=== PATIENT | female | born 1990 | race American Indian/Alaskan Native ===

== ENCOUNTER 2016-08-22 10:47 | Emergency (ER) | payer SELFPAY ==
--- NOTE | 2016-08-22 11:32 | Emergency Department Report ---
Entered by GALINA MAY, acting as scribe for LARRY JUDGE NP. Chief Complaint: Nausea/Vomiting/Diarrhea Stated Complaint: DEHYDRATION/NO FOODS DOWN X3 DAYS - HPI History of Present Illness: 25 y/o female, non toxic, NAD, well developed, c/o nausea vomiting for 4 days. Associated, chills with vomiting but denies fever, diarrhea, CP, SOB, blurry vision, abd pain, SAENZ - Exam Vital Signs: Vital Signs 08/22/16 11:01 Temperature 98.2 F Pulse Rate 123 H Respiratory 18 Rate Blood Pressure 136/89 O2 Sat by Pulse 100 Oximetry Physical Exam: GENERAL: The patient is a well-developed, well-nourished male in no apparent distress. Patient is alert and oriented x3. ABDOMEN: Soft, nontender, and nondistended. Positive bowel sounds. No hepatosplenomegaly was noted. No guarding or rebound tenderness, negative epigastric bruit. Negative psoas sign, negative white sign, negative McBurneys sign MSE screening note: Focused history and physical exam performed. Due to findings the following was ordered: CBC, UA, CMP, Serum ED Disposition for MSE Condition: Stable This documentation as recorded by the scribe,GALINA MAY,accurately reflects the service I personally performed and the decisions made by ,LARRY JUDGE, NUNU.
[2016-08-22 11:47] LABS: Basophils % (Auto) 0.6 % (0.0-1.8); Eosinophils % (Auto) 0.1 % (0.0-4.3); Hemoglobin 16.7 gm/dl (10.1-14.3); Mean Corpuscular HGB Conc 33 % (30-34); Mean Corpuscular Hemoglobin 29 pg (28-32); Mean Corpuscular Volume 88 fl (79-97); Platelet Count 340 K/mm3 (140-440); Red Blood Count 5.68 M/mm3 (3.65-5.03); Red Cell Distribution Width 13.8 % (13.2-15.2); White Blood Count 15.6 K/mm3 (4.5-11.0)
[2016-08-22 12:14] LABS: Albumin 5.2 g/dL (3.9-5); Albumin/Globulin Ratio 1.2 %; Bilirubin,Total 0.6 mg/dL (0.1-1.2); Calcium 10.1 mg/dL (8.4-10.2); Potassium 3.4 mmol/L (3.6-5.0); Total Protein 9.4 g/dL (6.3-8.2)
[2016-08-22 14:23] LABS: Amylase 50 units/L (27-131); Lipase 25 units/L (13-60)
--- NOTE | 2016-08-22 14:51 | Emergency Department Report ---
HPI - General Chief Complaint: Nausea/Vomiting/Diarrhea Time Seen by Provider: 08/22/16 14:16 - HPI HPI: This is a 25-year-old Afro-[place] female presents to the emergency department with a complaint of a three-day history of nausea, vomiting and dehydration. Patient says she is unsure whether she ate any undercooked meat or spoiled products but said she had a sloppy Filippo's at night and it has been going on since. Her fianc also had a sloppy Filippo but just had "bubble guts" without any nausea or vomiting. She denies any significant abdominal pain, fever, dysuria, back pain. She has not taken anything for symptoms prior to presentation. She denies any past medical history. No recent travel. She does not have a primary care doctor. ED Past Medical Hx - Past Medical History Previous Medical History?: No - Surgical History Past Surgical History?: No - Social History Smoking Status: Never Smoker Substance Use Type: Alcohol - Medications Home Medications: Home Medications Medication Instructions Recorded Confirmed Last Taken Type Nitrofurantoin [place]/M-Cryst 100 mg PO Q12HR #14 capsule 08/22/16 Unknown Rx [Macrobid CAP] Ondansetron [Zofran Odt] 4 mg PO Q8H PRN #10 tab.rapdis 08/22/16 Unknown Rx ED Review of Systems ROS: Stated complaint: DEHYDRATION/NO FOODS DOWN X3 DAYS Other details as noted in HPI Comment: All other systems reviewed and negative Constitutional: denies: chills, fever Eyes: denies: eye pain, eye discharge, vision change ENT: denies: ear pain, throat pain Respiratory: denies: cough, shortness of breath, wheezing Cardiovascular: denies: chest pain, palpitations Gastrointestinal: nausea, vomiting Genitourinary: denies: urgency, dysuria, discharge Musculoskeletal: denies: back pain, joint swelling, arthralgia Skin: denies: rash, lesions Neurological: denies: headache, weakness, paresthesias Physical Exam - Physical Exam Vital Signs: Vital Signs 08/22/16 11:01 Temperature 98.2 F Pulse Rate 123 H Respiratory 18 Rate Blood Pressure 136/89 O2 Sat by Pulse 100 Oximetry Physical Exam: GENERAL: The patient is well-developed well-nourished. HEENT: Normocephalic. Atraumatic. Extraocular motions are intact. Patient has moist mucous membranes. Pupils equal reactive to light bilaterally. NECK: Supple. Trachea is midline. CHEST/LUNGS: Clear to auscultation. There is no respiratory distress noted. HEART/CARDIOVASCULAR: Regular. There is mild tachycardia. There is no gallop rub or murmur. ABDOMEN: Abdomen is soft, nontender. Patient has hyperactive bowel sounds. There is no abdominal distention. SKIN: Skin is warm and dry. NEURO: The patient is awake, alert, and oriented. The patient is cooperative. The patient has no focal neurologic deficits. The patient has normal speech. MUSCULOSKELETAL: There is no tenderness or deformity. There is no limitation range of motion. There is no evidence of acute injury. ED Course Vital Signs 08/22/16 11:01 Temperature 98.2 F Pulse Rate 123 H Respiratory 18 Rate Blood Pressure 136/89 O2 Sat by Pulse 100 Oximetry ED Medical Decision Making - Lab Data Result diagrams: 08/22/16 11:30 08/22/16 11:30 - Medical Decision Making 25-year-old female presents with a three-day history of nausea, vomiting and probable dehydration. Vital signs are stable including being afebrile. Labs are mostly unremarkable other than some signs of dehydration with a BUN and creatinine ratio of greater than 30 showing some prerenal azotemia. She is starting to have some mild renal insufficiency secondary to her dehydration with a creatinine 1.2, which is normal, but a GFR of 55. Patient was given IV resuscitation with 2 L of IV fluid and 2 different doses of Zofran throughout her ED course. Since she was not having any significant abdominal pain and she did not require any imaging. Urinalysis does show a UTI and the patient is not . She was given a dose of Rocephin through her IV. Patient has been reevaluated multiple times over multiple hours and is feeling improved. The tachycardia had resolved. She'll be discharged home with referral for primary care, [place] for nausea and Macrobid for a UTI. She will return to ER with any worsening of her symptoms or any acute distress. - Differential Diagnosis food poisoning, viral syndrome, colitis, bowel obstruction Critical Care Time: No Critical care attestation.: If time is entered above; I have spent that time in minutes in the direct care of this critically ill patient, excluding procedure time. ED Disposition Clinical Impression: Dehydration, Mild renal insufficiency Nausea and vomiting Qualifiers: Vomiting type: unspecified Vomiting Intractability: non-intractable Qualified Code(s): R11.2 - Nausea with vomiting, unspecified UTI (urinary tract infection) Qualifiers: Urinary tract infection type: acute cystitis Hematuria presence: without hematuria Qualified Code(s): N30.00 - Acute cystitis without hematuria Disposition: DISCHARGED TO HOME OR SELFCARE Is pt being admited?: No Condition: Stable Instructions: Acute Nausea and Vomiting (ED), Dehydration (ED), Urinary Tract Infection in Women (ED), Impaired Kidney Function (ED) Additional Instructions: Please increase your oral rehydration. Return to the emergency department with any intractable vomiting, worsening of her symptoms or any acute distress. Please follow-up with a primary care doctor in the next few days without fail. Prescriptions: Nitrofurantoin [place]/M-Cryst [Macrobid CAP] 100 mg PO Q12HR #14 capsule Ondansetron [Zofran Odt] 4 mg PO Q8H PRN #10 tab.rapdis PRN Reason: Nausea Referrals: PRIMARY CARE, [Primary Care Provider] - 3-5 Days OSITO ORELLANA MD [Staff Physician] - 3-5 Days DIANA MASON MD [Staff Physician] - 3-5 Days [facility] [Outside] - 3-5 Days Time of Disposition: 18:53
[2016-08-22] MEDS ORDERED: ZOFRAN IV ONE ×2 (15:28→18:23)
[2016-08-22] MEDS ORDERED: NACL 0.9% 1000 ML 1,000 ML IV ONE (15:28)
[2016-08-22 17:36] LABS: Bacteria,Urine 1+ /HPF (Negative); Bilirubin,Urine SM (Negative); Blood,Urine SM (Negative); Granular Casts,Urine 14 /LPF; Ketones,Urine 20 mg/dL (Negative); Leukocyte Esterase,Urine TR (Negative); Mucus,Urine 3+ /HPF; Nitrite,Urine NEG (Negative); Protein,Urine >500 mg/dL (Negative)
[2016-08-22] MEDS ORDERED: ROCEPHIN/NS 1 GM/50 ML 1 GM/50 ML BAG IV ONE (17:48)
[2016-08-22 17:57] VITALS: BP 140/89
== END 2016-08-22 19:04 | disposition home or self-care (01) ==
LOC: ED 10:47
DX: N30.00 Acute cystitis without hematuria (principal); E86.0 Dehydration; N28.9 Disorder of kidney and ureter, unspecified; R11.2 Nausea with vomiting, unspecified
CPT/HCPCS: 36415; 80053; 81001; 82150; 83690; 84703; 85025; 96361; 96365; 96375; 96376; 99283; J0696; J2405; J7030

== ENCOUNTER 2016-11-10 17:55 | Emergency (ER) | payer SELFPAY ==
[2016-11-10 18:12] VITALS: BP 153/109
[2016-11-10] MEDS ORDERED: ZOFRAN ODT PO ONE (18:19)
[2016-11-10 18:38] LABS: Basophils % (Auto) 0.4 % (0.0-1.8); Eosinophils % (Auto) 0.2 % (0.0-4.3); Hematocrit 44.6 % (30.3-42.9); Hemoglobin 15.1 gm/dl (10.1-14.3); Mean Corpuscular HGB Conc 34 % (30-34); Mean Corpuscular Hemoglobin 30 pg (28-32); Mean Corpuscular Volume 89 fl (79-97); Platelet Count 307 K/mm3 (140-440); Red Blood Count 5.04 M/mm3 (3.65-5.03); Red Cell Distribution Width 13.6 % (13.2-15.2); White Blood Count 16.6 K/mm3 (4.5-11.0)
[2016-11-10 18:53] LABS: Alanine Aminotransferase 15 units/L (7-56); Albumin/Globulin Ratio 1.2 %; Alkaline Phosphatase 99 units/L (35-129); Anion Gap 25 mmol/L; BUN/Creatinine Ratio 18.33; Blood Urea Nitrogen 11 mg/dL (7-17); Carbon Dioxide 20 mmol/L (22-30); Chloride 98.1 mmol/L (98-107); Glucose 125 mg/dL (65-100); Lipase 21 units/L (13-60); Potassium 4.1 mmol/L (3.6-5.0); Sodium 139 mmol/L (137-145); Total Protein 9.3 g/dL (6.3-8.2)
== END 2016-11-10 20:34 | disposition left against medical advice (07) ==
LOC: ED 17:55
DX: R10.9 Unspecified abdominal pain (principal); K92.0 Hematemesis; Z53.21 Procedure and treatment not carried out due to patient leaving prior to being seen by health care provider
CPT/HCPCS: 36415; 80053; 83690; 84702; 85025; Q0162

== ENCOUNTER 2017-04-09 14:25 | Emergency (ER) | payer SELFPAY ==
[2017-04-09 15:22] LABS: Basophils # (Auto) 0.1 K/mm3 (0.0-0.1); Basophils % (Auto) 0.5 % (0.0-1.8); Eosinophils % (Auto) 0.2 % (0.0-4.3); Hematocrit 49.3 % (30.3-42.9); Hemoglobin 16.2 gm/dl (10.1-14.3); Lymphocytes # (Auto) 2.7 K/mm3 (1.2-5.4); Lymphocytes % (Auto) 19.9 % (13.4-35.0); Mean Corpuscular HGB Conc 33 % (30-34); Mean Corpuscular Hemoglobin 29 pg (28-32); Mean Corpuscular Volume 88 fl (79-97); Monocytes # (Auto) 0.7 K/mm3 (0.0-0.8); Red Cell Distribution Width 13.9 % (13.2-15.2)
[2017-04-09 15:34] LABS: Platelet Count 287 K/mm3 (140-440)
[2017-04-09 16:25] LABS: Bilirubin,Urine NEG (Negative); Blood,Urine NEG (Negative); Color,Urine Amber (Yellow); Mucus,Urine 3+ /HPF; Nitrite,Urine NEG (Negative)
[2017-04-09 16:27] LABS: Protein,Urine >500 mg/dL (Negative)
[2017-04-09 16:30] LABS: Alanine Aminotransferase 17 units/L (7-56); Albumin 5.1 g/dL (3.9-5); BUN/Creatinine Ratio 27; Blood Urea Nitrogen 19 mg/dL (7-17); Calcium 9.8 mg/dL (8.4-10.2); Hemolysis Index 10
[2017-04-10 03:37] LABS: HCG Qualitative,Urine Negative (Negative)
[2017-04-10] MEDS ORDERED: PEPCID IV ONE (04:32)
[2017-04-10] MEDS ORDERED: DILAUDID IV ONE (04:32)
[2017-04-10] MEDS ORDERED: CARAFATE PO ONE (04:32)
[2017-04-10] MEDS ORDERED: ZOFRAN IV ONE (04:32)
[2017-04-10] MEDS ORDERED: BENTYL PO ONE (04:32)
[2017-04-10] MEDS ORDERED: NACL 0.9% 500 ML 500 ML IV ONE (04:33)
[2017-04-10] MEDS ORDERED: TYLENOL PO ONE (04:33)
--- NOTE | 2017-04-10 04:33 | Emergency Department Report ---
ED General Adult HPI - General Chief complaint: Abdominal Pain Stated complaint: DEHYDRATION, NAUSEA, FAINT, ABD PAIN Time Seen by Provider: 04/10/17 04:14 Source: patient, RN notes reviewed, old records reviewed Mode of arrival: Ambulatory Limitations: No Limitations - History of Present Illness Initial comments: This is a 26-year-old female who was previously unknown to this provider. Patient presents to the ER today with a complaint of abdominal pain, nausea, vomiting. She reports a few episodes of initial nonbloody, nonbilious emesis, initially thereafter indicates that she's had a few episodes of blood-tinged emesis. She denies headache, neck pain, chest pain. She denies irritative and obstructive urinary symptoms. She also describes coffee colored stool, but denies ann marie melena. She does endorse that her symptoms improve when she takes a hot shower, and she admits to consuming marijuana for 5 times a month. She denies other hard drugs. She has abdominal pain that is achy, cramping, sharp, increases with palpation, decreases with rest. -: Gradual, days(s) Location: abdomen Radiation: non-radiation Severity scale (0 -10): 8 Quality: aching Consistency: constant Improves with: rest Worsens with: eating Associated Symptoms: malaise, nausea/vomiting, weakness. denies: confusion, chest pain, cough, diaphoresis, loss of appetite - Related Data Previous Rx's Medication Instructions Recorded Last Taken Type Nitrofurantoin Bailey/M-Cryst 100 mg PO Q12HR #14 capsule 08/22/16 Unknown Rx [Macrobid CAP] Ondansetron [Zofran Odt] 4 mg PO Q8H PRN #10 tab.rapdis 08/22/16 Unknown Rx Dicyclomine [Bentyl] 10 mg PO QID PRN #20 capsule 04/10/17 Unknown Rx Famotidine [Pepcid] 20 mg PO QDAY #30 tablet 04/10/17 Unknown Rx Ondansetron [Zofran Odt] 4 mg PO Q8HR PRN #20 tab.rapdis 04/10/17 Unknown Rx Allergies Allergy/AdvReac Type Severity Reaction Status Date / Time No Known Allergies Allergy Verified 11/10/16 18:13 ED Review of Systems ROS: Stated complaint: DEHYDRATION, NAUSEA, FAINT, ABD PAIN Other details as noted in HPI ED Past Medical Hx - Past Medical History Hx Asthma: Yes - Surgical History Past Surgical History?: No - Social History Smoking Status: Never Smoker Substance Use Type: None - Medications Home Medications: Home Medications Medication Instructions Recorded Confirmed Last Taken Type Nitrofurantoin Bailey/M-Cryst 100 mg PO Q12HR #14 capsule 08/22/16 Unknown Rx [Macrobid CAP] Ondansetron [Zofran Odt] 4 mg PO Q8H PRN #10 tab.rapdis 08/22/16 Unknown Rx Dicyclomine [Bentyl] 10 mg PO QID PRN #20 capsule 04/10/17 Unknown Rx Famotidine [Pepcid] 20 mg PO QDAY #30 tablet 04/10/17 Unknown Rx Ondansetron [Zofran Odt] 4 mg PO Q8HR PRN #20 tab.rapdis 04/10/17 Unknown Rx ED Physical Exam - General Limitations: No Limitations General appearance: alert, in no apparent distress - Head Head exam: Present: atraumatic, normocephalic - Eye Eye exam: Present: normal appearance, EOMI. Absent: nystagmus - ENT ENT exam: Present: normal exam, normal orophraynx, mucous membranes moist, normal external ear exam - Neck Neck exam: Present: normal inspection, full ROM - Respiratory Respiratory exam: Present: normal lung sounds bilaterally. Absent: respiratory distress - Cardiovascular Cardiovascular Exam: Present: normal rhythm, tachycardia, normal heart sounds. Absent: systolic murmur, diastolic murmur, rubs, gallop - GI/Abdominal GI/Abdominal exam: Present: soft, tenderness, normal bowel sounds, other (right flank, right upper quadrant tenderness, no rebound, guarding or peritoneal signs ). Absent: distended, guarding, rebound, rigid, pulsatile mass - Rectal Rectal exam: Present: normal inspection, normal rectal tone, heme (-) stool, other (escorted by nurse ALCE HEDRICK). Absent: decreased rectal tone, heme (+ ) stool, black stool, bloody stool, fecal impaction, hemorrhoids - External exam: Present: normal external exam Speculum exam: Present: normal speculum exam, other (escorted by nursing ALEC HEDRICK) Bi-manual exam: Present: normal bi-manual exam. Absent: cervical motion tendernes, adnexal tenderness, adnexal mass - Extremities Exam Extremities exam: Present: normal inspection, full ROM, normal capillary refill. Absent: pedal edema, joint swelling, calf tenderness - Back Exam Back exam: Present: normal inspection, full ROM. Absent: tenderness, CVA tenderness (R), paraspinal tenderness, vertebral tenderness - Neurological Exam Neurological exam: Present: alert, oriented X3, CN II-XII intact, normal gait, other (Extraocular movements intact. Tongue midline. No facial droop. Facial sensation intact to light touch in the V1, V2, V3 distribution bilaterally. 5 and 5 strength in 4 extremities.. Sensation is intact to light touch in 4 extremities.). Absent: motor sensory deficit - Psychiatric Psychiatric exam: Present: normal affect, normal mood - Skin Skin exam: Present: warm, dry, intact, normal color. Absent: rash ED Course Vital Signs 04/09/17 04/10/17 04/10/17 14:57 00:15 03:33 Temperature 99.0 F 97.7 F Pulse Rate 106 H 106 H 81 Respiratory 18 18 18 Rate Blood Pressure 154/106 150/108 Blood Pressure [Left] O2 Sat by Pulse 100 100 Oximetry 04/10/17 04/10/17 04/10/17 03:45 04:00 04:04 Temperature 99.3 F Pulse Rate 101 H 94 H 105 H Respiratory 18 18 16 Rate Blood Pressure 136/86 152/96 Blood Pressure 136/86 [Left] O2 Sat by Pulse 97 99 99 Oximetry 04/10/17 04/10/17 04/10/17 04:05 04:15 04:31 Temperature Pulse Rate 78 105 H Respiratory 16 25 H 17 Rate Blood Pressure 152/96 152/96 Blood Pressure [Left] O2 Sat by Pulse 99 95 Oximetry 04/10/17 04/10/17 04/10/17 04:45 05:44 05:45 Temperature Pulse Rate 96 H Respiratory 20 18 Rate Blood Pressure 152/96 152/96 Blood Pressure [Left] O2 Sat by Pulse 93 Oximetry 04/10/17 04/10/17 04/10/17 06:00 06:06 06:15 Temperature Pulse Rate 87 70 Respiratory 23 18 20 Rate Blood Pressure 135/81 135/81 Blood Pressure [Left] O2 Sat by Pulse 97 95 Oximetry 04/10/17 04/10/17 06:31 06:45 Temperature Pulse Rate 74 84 Respiratory 17 21 Rate Blood Pressure 135/81 135/81 Blood Pressure [Left] O2 Sat by Pulse 97 96 Oximetry - Reevaluation(s) Reevaluation #1: 04/10/17 05:58 Patient is clinically sober at this time, does not require 1013, walks with a steady gait, therefore there is no utility in performing a urine drug screen on her. It will not change how i manage the patient. Reevaluation #2: 04/10/17 06:01 patient still waiting to take oral meds. care transferred to Dr Clarke; if patient can drink she can go home if she cannot tolerate orals, then would admit for intractable nausea and vomiting ED Medical Decision Making - Lab Data Result diagrams: 04/09/17 15:06 04/09/17 15:06 Vital Signs 04/09/17 04/10/17 04/10/17 14:57 00:15 04:04 Temperature 99.0 F 97.7 F 99.3 F Pulse Rate 106 H 106 H 105 H Respiratory 18 18 16 Rate Blood Pressure 154/106 150/108 Blood Pressure 136/86 [Left] O2 Sat by Pulse 100 100 99 Oximetry 04/10/17 04:05 Temperature Pulse Rate Respiratory 16 Rate Blood Pressure Blood Pressure [Left] O2 Sat by Pulse 99 Oximetry Lab Results 04/09/17 04/09/17 04/09/17 Range/Units 15:06 15:06 15:30 WBC 13.6 H (4.5-11.0) K/mm3 RBC 5.60 H (3.65-5.03) M/mm3 Hgb 16.2 H (10.1-14.3) gm/dl Hct 49.3 H (30.3-42.9) % MCV 88 (79-97) fl MCH 29 (28-32) pg MCHC 33 (30-34) % RDW 13.9 (13.2-15.2) % Plt Count 287 (140-440) K/mm3 Lymph % (Auto) 19.9 (13.4-35.0) % Bailey % (Auto) 5.0 (0.0-7.3) % Eos % (Auto) 0.2 (0.0-4.3) % Baso % (Auto) 0.5 (0.0-1.8) % Lymph # 2.7 (1.2-5.4) K/mm3 Bailey # 0.7 (0.0-0.8) K/mm3 Eos # 0.0 (0.0-0.4) K/mm3 Baso # 0.1 (0.0-0.1) K/mm3 Seg Neutrophils % 74.4 H (40.0-70.0) % Seg Neutrophils # 10.1 H (1.8-7.7) K/mm3 Sodium 137 (137-145) mmol/L Potassium 3.4 L (3.6-5.0) mmol/L Chloride 93.1 L (98-107) mmol/L Carbon Dioxide 26 (22-30) mmol/L Anion Gap 21 mmol/L BUN 19 H (7-17) mg/dL Creatinine 0.7 (0.7-1.2) mg/dL Estimated GFR > 60 ml/min BUN/Creatinine Ratio 27 % Glucose 102 H (65-100) mg/dL Calcium 9.8 (8.4-10.2) mg/dL Total Bilirubin 0.50 (0.1-1.2) mg/dL AST 22 (5-40) units/L ALT 17 (7-56) units/L Alkaline Phosphatase 86 (35-129) units/L Total Protein 9.1 H (6.3-8.2) g/dL Albumin 5.1 H (3.9-5) g/dL Albumin/Globulin Ratio 1.3 % Urine Color Sue (Yellow) Urine Turbidity Clear (Clear) Urine pH 5.0 (5.0-7.0) Ur Specific Downey 1.034 H (1.003-1.030) Urine Protein >500 (Negative) mg/dL Urine Glucose (UA) Neg (Negative) mg/dL Urine Ketones 20 (Negative) mg/dL Urine Blood Neg (Negative) Urine Nitrite Neg (Negative) Urine Bilirubin Neg (Negative) Urine Urobilinogen 2.0 (<2.0) mg/dL Ur Leukocyte Esterase Tr (Negative) Urine WBC (Auto) 6.0 (0.0-6.0) /HPF Urine RBC (Auto) 4.0 (0.0-6.0) /HPF U Epithel Cells (Auto) 6.0 (0-13.0) /HPF Urine Mucus 3+ /HPF Urine HCG, Qual (Negative) 04/10/17 Range/Units 03:18 WBC (4.5-11.0) K/mm3 RBC (3.65-5.03) M/mm3 Hgb (10.1-14.3) gm/dl Hct (30.3-42.9) % MCV (79-97) fl MCH (28-32) pg MCHC (30-34) % RDW (13.2-15.2) % Plt Count (140-440) K/mm3 Lymph % (Auto) (13.4-35.0) % Bailey % (Auto) (0.0-7.3) % Eos % (Auto) (0.0-4.3) % Baso % (Auto) (0.0-1.8) % Lymph # (1.2-5.4) K/mm3 Bailey # (0.0-0.8) K/mm3 Eos # (0.0-0.4) K/mm3 Baso # (0.0-0.1) K/mm3 Seg Neutrophils % (40.0-70.0) % Seg Neutrophils # (1.8-7.7) K/mm3 Sodium (137-145) mmol/L Potassium (3.6-5.0) mmol/L Chloride (98-107) mmol/L Carbon Dioxide (22-30) mmol/L Anion Gap mmol/L BUN (7-17) mg/dL Creatinine (0.7-1.2) mg/dL Estimated GFR ml/min BUN/Creatinine Ratio % Glucose (65-100) mg/dL Calcium (8.4-10.2) mg/dL Total Bilirubin (0.1-1.2) mg/dL AST (5-40) units/L ALT (7-56) units/L Alkaline Phosphatase (35-129) units/L Total Protein (6.3-8.2) g/dL Albumin (3.9-5) g/dL Albumin/Globulin Ratio % Urine Color (Yellow) Urine Turbidity (Clear) Urine pH (5.0-7.0) Ur Specific Downey (1.003-1.030) Urine Protein (Negative) mg/dL Urine Glucose (UA) (Negative) mg/dL Urine Ketones (Negative) mg/dL Urine Blood (Negative) Urine Nitrite (Negative) Urine Bilirubin (Negative) Urine Urobilinogen (<2.0) mg/dL Ur Leukocyte Esterase (Negative) Urine WBC (Auto) (0.0-6.0) /HPF Urine RBC (Auto) (0.0-6.0) /HPF U Epithel Cells (Auto) (0-13.0) /HPF Urine Mucus /HPF Urine HCG, Qual Negative (Negative) - Radiology Data Radiology results: report reviewed, image reviewed CT scan of the abdomen and pelvis with IV contrast: No acute disease - Medical Decision Making Differential diagnosis, including not limited to: GERD, gastritis, pancreatitis , appendicitis, colitis, cyclic vomiting syndrome, narcotic bowel syndrome, cannabinoid hyperemesis syndrome, [place] tear Assessment and plan: 26-year-old female with complaint of abdominal pain, nausea or vomiting, has not had any bleeding that I can detect, rectal exam is negative, has had a few episodes of vomiting, CT scan abdomen and pelvis is normal, gynecologic exam is normal, patient medicated, currently waiting by mouth challenge. Critical care attestation.: If time is entered above; I have spent that time in minutes in the direct care of this critically ill patient, excluding procedure time. ED Disposition Clinical Impression: Abdominal pain, Nausea & vomiting Disposition: DC-01 TO HOME OR SELFCARE Is pt being admited?: No Does the pt Need Aspirin: No Condition: Stable Instructions: Abdominal Pain (ED) Additional Instructions: Take the pain medication, nausea medication as directed. Avoid consumption of alcohol, Motrin, ibuprofen, Naprosyn. Follow up with the primary care doctor or mechanical manager within the next 7-10 days. Return to the ER right away with new pain, worsening pain, migration of pain, fevers, chills, lethargy, irritability, projectile vomiting, change in mental status, confusion, inability to tolerate liquid feeds. Prescriptions: Dicyclomine [Bentyl] 10 mg PO QID PRN #20 capsule PRN Reason: Pain Famotidine [Pepcid] 20 mg PO QDAY #30 tablet Ondansetron [Zofran Odt] 4 mg PO Q8HR PRN #20 tab.rapdis PRN Reason: Nausea Referrals: OLY VARGAS MD [Primary Care Provider] - 3-5 Days [facility] [Provider Group] - 3-5 Days ROYAL RICHARDSON MD [Staff Physician] - 3-5 Days Forms: Work/School Release Form(ED)
[2017-04-10] MEDS ORDERED: NACL 0.9% 1000 ML 1,000 ML IV ONE (04:34)
[2017-04-10] MEDS ORDERED: DILAUDID ONE (05:38)
--- NOTE | 2017-04-10 05:38 | Cat Scan Report ---
FINAL REPORT EXAM: CT ABDOMEN PELVIS W CON HISTORY: abd pain n/v TECHNIQUE: CT images are acquired through the Abdomen and Pelvis arterial and delayed phases following intravenous administration of contrast. Transaxial, coronal and sagittal reformations are provided. PRIORS: None FINDINGS: Partially visualized intrathoracic contents are unremarkable. The liver, gallbladder, pancreas, spleen, and adrenal glands are unremarkable. Kidneys show no worrisome lesions, hydronephrosis, or calculi. Urinary bladder is unremarkable. Small hiatal hernia. 5 small and large bowel are normal in caliber. Sigmoid diverticulosis without surrounding inflammatory findings. Appendix is normal. No free air, free fluid, or lymphadenopathy identified. Aorta is normal in course and caliber. Anteverted uterus. An IUD is present. Functional cysts in both ovaries measure up to about 2.5 cm in greatest dimension. No significant free fluid in the pelvis. Superficial soft tissues are unremarkable. No acute or aggressive appearing skeletal findings. IMPRESSION: No acute findings in the abdomen or pelvis. Small hiatal hernia. Small functional cysts in both ovaries. If there is concern for gynecologic etiology of patient's symptoms, consider follow-up pelvic ultrasound.
[2017-04-10 07:00] VITALS: BP 135/81
== END 2017-04-10 07:06 | disposition home or self-care (01) ==
LOC: ED 14:25
DX: R10.9 Unspecified abdominal pain (principal); R11.2 Nausea with vomiting, unspecified; J45.909 Unspecified asthma, uncomplicated
CPT/HCPCS: 36415; 74177; 80053; 81001; 81025; 82271; 85025; 87210; 87591; 96361; 96374; 96375; 99285; J1170; J2405; J7030; Q9967

== ENCOUNTER 2018-12-05 07:12 | Emergency (ER) | payer SELFPAY ==
[2018-12-05 07:19] VITALS: BP 156/99
[2018-12-05] MEDS ORDERED: NORCO 5/325 PO ONE (09:30)
[2018-12-05] MEDS ORDERED: NORCO 5/325 ONE (09:33)
--- NOTE | 2018-12-05 10:11 | Emergency Department Report ---
ED ENT HPI - General Chief complaint: Earache Stated complaint: RT EAR PAIN/NECK PAIN Time Seen by Provider: 12/05/18 07:57 Source: patient Mode of arrival: Ambulatory Limitations: No Limitations - History of Present Illness Initial comments: 28-year-old female dismissed from a complaining of pain to her right mandible area, radiates up to her TMJ in her ear. States pain is worse when she opens and close her mouth when she chews. She reports no fever, chills, sweats, no odynophagia or dysphagia. No trauma to her nose. No ear discharge, no ringing in the ear. No loss of hearing. MD complaint: tooth pain Location: R ear, tooth # Severity: mild Quality: dull Consistency: constant Improves with: none Worsens with: none Context- Dental: history of dental caries - Related Data Previous Rx's Medication Instructions Recorded Last Taken Type Nitrofurantoin Kaufman/M-Cryst 100 mg PO Q12HR #14 capsule 08/22/16 Unknown Rx [Macrobid CAP] Ondansetron [Zofran Odt] 4 mg PO Q8H PRN #10 tab.rapdis 08/22/16 Unknown Rx Dicyclomine [Bentyl] 10 mg PO QID PRN #20 capsule 04/10/17 Unknown Rx Famotidine [Pepcid] 20 mg PO QDAY #30 tablet 04/10/17 Unknown Rx Ondansetron [Zofran Odt] 4 mg PO Q8HR PRN #20 tab.rapdis 04/10/17 Unknown Rx Amoxicillin [Amoxicillin TAB] 875 mg PO BID #20 tablet 12/05/18 Unknown Rx Ketorolac [Toradol] 10 mg PO Q6H PRN #15 tablet 12/05/18 Unknown Rx Lidocaine Viscous 2% 5 ml MM Q3H PRN #120 udc 12/05/18 Unknown Rx Allergies Allergy/AdvReac Type Severity Reaction Status Date / Time No Known Allergies Allergy Verified 11/10/16 18:13 ED Dental HPI - General Chief complaint: Earache Stated complaint: RT EAR PAIN/NECK PAIN Time Seen by Provider: 12/05/18 07:57 Source: patient Mode of arrival: Ambulatory Limitations: No Limitations - Related Data Previous Rx's Medication Instructions Recorded Last Taken Type Nitrofurantoin Kaufman/M-Cryst 100 mg PO Q12HR #14 capsule 08/22/16 Unknown Rx [Macrobid CAP] Ondansetron [Zofran Odt] 4 mg PO Q8H PRN #10 tab.rapdis 08/22/16 Unknown Rx Dicyclomine [Bentyl] 10 mg PO QID PRN #20 capsule 04/10/17 Unknown Rx Famotidine [Pepcid] 20 mg PO QDAY #30 tablet 04/10/17 Unknown Rx Ondansetron [Zofran Odt] 4 mg PO Q8HR PRN #20 tab.rapdis 04/10/17 Unknown Rx Amoxicillin [Amoxicillin TAB] 875 mg PO BID #20 tablet 12/05/18 Unknown Rx Ketorolac [Toradol] 10 mg PO Q6H PRN #15 tablet 12/05/18 Unknown Rx Lidocaine Viscous 2% 5 ml MM Q3H PRN #120 udc 12/05/18 Unknown Rx Allergies Allergy/AdvReac Type Severity Reaction Status Date / Time No Known Allergies Allergy Verified 11/10/16 18:13 ED Review of Systems ROS: Stated complaint: RT EAR PAIN/NECK PAIN Other details as noted in HPI Comment: All other systems reviewed and negative ED Past Medical Hx - Past Medical History Previous Medical History?: Yes Hx Asthma: Yes - Surgical History Past Surgical History?: No - Social History Smoking Status: Never Smoker Substance Use Type: None - Medications Home Medications: Home Medications Medication Instructions Recorded Confirmed Last Taken Type Nitrofurantoin Kaufman/M-Cryst 100 mg PO Q12HR #14 capsule 08/22/16 Unknown Rx [Macrobid CAP] Ondansetron [Zofran Odt] 4 mg PO Q8H PRN #10 tab.rapdis 08/22/16 Unknown Rx Dicyclomine [Bentyl] 10 mg PO QID PRN #20 capsule 04/10/17 Unknown Rx Famotidine [Pepcid] 20 mg PO QDAY #30 tablet 04/10/17 Unknown Rx Ondansetron [Zofran Odt] 4 mg PO Q8HR PRN #20 tab.rapdis 04/10/17 Unknown Rx Amoxicillin [Amoxicillin TAB] 875 mg PO BID #20 tablet 12/05/18 Unknown Rx Ketorolac [Toradol] 10 mg PO Q6H PRN #15 tablet 12/05/18 Unknown Rx Lidocaine Viscous 2% 5 ml MM Q3H PRN #120 udc 12/05/18 Unknown Rx ED Physical Exam - General Limitations: No Limitations General appearance: alert, in no apparent distress - Head Head exam: Present: atraumatic, normocephalic - Eye Eye exam: Present: normal appearance, PERRL, EOMI - ENT ENT exam: Present: mucous membranes moist, TM's normal bilaterally, other (antalgic to the right lower dentition at tooth #3030 with some adjacent gingival erythema. No exudate. Tongue and uvula midline. Airway is patent) - Neck Neck exam: Present: normal inspection, full ROM - Respiratory Respiratory exam: Present: normal lung sounds bilaterally. Absent: respiratory distress, wheezes, rales, chest wall tenderness, accessory muscle use, decreased breath sounds - Cardiovascular Cardiovascular Exam: Present: regular rate, normal rhythm. Absent: systolic murmur, diastolic murmur, rubs, gallop - GI/Abdominal GI/Abdominal exam: Present: soft, normal bowel sounds - Extremities Exam Extremities exam: Present: normal inspection - Back Exam Back exam: Present: normal inspection - Neurological Exam Neurological exam: Present: alert, oriented X3 - Psychiatric Psychiatric exam: Present: normal affect, normal mood - Skin Skin exam: Present: warm, dry, intact, normal color. Absent: rash ED Course Vital Signs 12/05/18 07:16 Temperature 97.5 F L Pulse Rate 76 Respiratory 16 Rate Blood Pressure 156/99 O2 Sat by Pulse 99 Oximetry Critical care attestation.: If time is entered above; I have spent that time in minutes in the direct care of this critically ill patient, excluding procedure time. ED Disposition Clinical Impression: Dentalgia Disposition: DC- TO HOME OR SELFCARE Is pt being admited?: No Does the pt Need Aspirin: No Condition: Stable Instructions: Dental Abscess (ED), Dental Caries (ED), Toothache (ED) Prescriptions: Amoxicillin [Amoxicillin TAB] 875 mg PO BID #20 tablet Lidocaine Viscous 2% 5 ml MM Q3H PRN #120 udc PRN Reason: Pain, Moderate (4-6) Ketorolac [Toradol] 10 mg PO Q6H PRN #15 tablet PRN Reason: Pain Referrals: [facility] [Outside] - 3-5 Days
== END 2018-12-05 10:08 | disposition home or self-care (01) ==
LOC: ED 07:12
DX: K08.89 Other specified disorders of teeth and supporting structures (principal); J45.909 Unspecified asthma, uncomplicated; Z79.899 Other long term (current) drug therapy